=== PATIENT | female | born 1995 | race Caucasian/White ===

== ENCOUNTER 2019-07-03 11:25 | Inpatient (IN) ==
[2019-07-03] MEDS ORDERED: OXYTOCIN/DEXTROSE 5%-WATER 30 UNITS/500 ML BAG IV ONE (18:24)
[2019-07-03] MEDS ORDERED: ONDANSETRON 4 MG TAB.RAPDIS PO PRN (18:24)
[2019-07-03] MEDS ORDERED: DEXTROSE 5%-LACTATED RINGERS 1,000 ML IV PRN (18:24)
[2019-07-03] MEDS ORDERED: RINGER'S SOLUTION,LACTATED 1,000 ML IV ONE (18:24)
[2019-07-03] MEDS: MISOPROSTOL 100 MCG TABLET VG PRN ×2 (18:50→23:27)
[2019-07-03 19:38] LABS: Cocaine Ur Negative (NEGATIVE); Urine Barbiturate Negative (NEGATIVE); Urine Benzodiazepines Negative (NEGATIVE); Urine Opiates Negative (NEGATIVE); Urine PCP Negative (NEGATIVE); Urine THC Negative (NEGATIVE)
--- NOTE | 2019-07-03 19:45 | HP ---
Chief Complaint - Chief Complaint Date of Service: 07/03/19 Time of Service: 19:36 Chief Complaint: elective induction of labor History of Present Illness: 24 yo at 39 6/7 weeks presents to L&D for elective induction of labor. This complicated by anemia, thrombocytopenia. Rh positive Rubella immune GBS negative Medical History (Last Reviewed 07/03/19 @ 19:38 by Kevin Briceno DO) Anxiety Onset Date: ~04/2016 hx of tx with escitalopram. None since 01/2018 Asthma Onset Date: ~2009 Sports induced. No use of inhaler for approx. 2 years Irritable bowel syndrome (IBS) Onset Date: ~2011 Hx of tx with Linzess. None since +UPT Thrombocytopenia Onset Date: 04/02/19 w/ Body piercing Onset Date: Unknown Wears glasses Onset Date: Unknown Complete spontaneous (Resolved) Onset Date: ~03/2018 Irregular menses (Resolved) Onset Date: Unknown Lazy eye Onset Date: Unknown left. Corrected Threatened spontaneous (Resolved) Surgical History: Surgical History (Last Reviewed 07/03/19 @ 19:38 by Kevin Briceno DO) H/O eye surgery Onset Date: ~2001 Lazy eye tx [place] teeth extracted Onset Date: ~01/2018 Teeth 1 & 16 Family History: Family History (Last Reviewed 07/03/19 @ 19:38 by Kevin Briceno DO) Mother Rheumatic fever Father Alive and well Aunt Diabetes Paternal Grandmother Obesity Uterus problem Fibroids Social History: (Last Updated 07/02/19 @ 15:50 by Kevin Briceno DO) Social History: adopted: No penitentiary: No Marital status: household members: spouse number of children: 0 current occupational status: employed current occupation: [employer] current occupational exposures/hazards: Yes current occupational exposures/hazards comment: radiation Highest education level completed: Associate degree: occupat Sexually Active: Yes Service: No Tobacco: Smoking Status: Never smoker Alcohol: alcohol intake: never Substance Use: substance use type: does not use Dietary Habits: caffeine: No caffeine comment: Not since daily servings of milk/calcium: 2-4 Exercise: Physical activity type: walking frequency: 1-2 times per week duration: 15-30 minutes/day Ruth/Roman Catholic: special ruth needs: No agree to transfusion: Yes Personal Safety: do you feel safe at home: Yes victim of physical abuse: No victim of emotional abuse: No victim of sexual abuse: No Review Of Systems (GEN) - Review of Systems Generalized/Overall Review: Present: No Symptoms Reported EENTM: Present: No Symptoms Reported Respiratory: Present: No Symptoms Reported Cardiac: Present: No Symptoms Reported Abdominal: Present: No Symptoms Reported Genitourinary: Present: No Symptoms Reported Musculoskeletal: Present: No Symptoms Reported Neurological: Present: No Symptoms Reported Skin: Present: No Symptoms Reported Endocrine: Present: No Symptoms Reported Allergies/Adverse Reactions: Allergies Allergy/AdvReac Type Severity Reaction Status Date / Time levofloxacin [From Levaquin] Allergy Severe Anaphylaxis Verified 07/02/19 14:56 Home Medications: HOME MEDICATIONS docusate sodium 100 mg capsule 100 mg PO DAILY 11/27/18 [Last Taken 07/02/19 21:00] prenat.vits,suresh,arq-jsma-[id number] 1 tab PO DAILY 11/27/18 [Last Taken 07/02/19 21:00] calcium carbonate 200 mg calcium (500 mg) chewable tablet 200 mg PO DAILY PRN 02/26/19 [Last Taken 07/02/19 21:00] famotidine 10 mg tablet 10 mg PO DAILY 04/23/19 [Last Taken 07/02/19 21:00] Exam - Exam Vital Signs: Vital Signs - Last Taken Temp 36.8 C 07/03/19 18:33 Pulse 89 07/03/19 18:33 Resp 18 07/03/19 18:33 BP 116/71 07/03/19 18:33 Pulse Ox 98 07/03/19 18:33 Constitutional: Present: Alert, Oriented x3, Cooperative ENT Exam: Present: hearing grossly normal Breasts: Present: Exam deferred Respiratory: Present: lungs clear, no respiratory distress Cardiovascular/Chest: Present: regular rate, rhythm, no edema Abdomen: Present: soft, nontender, no rebound tenderness, other - gravid /Rectal: Present: Other - cervix - 1/50/-1 Extremity: Present: no pedal edema, no calf tenderness Skin Exam: Present: normal color, warm/dry, no cyanosis Lymphatic: Present: no adenopathy Neurologic: Present: no motor/sensory deficits, alert Appearance: Present: appropriate appearance, appropriate insight Eye contact: Present: cooperative, good eye contact Thoughts: Present: normal thought pattern, normal mood /affect Assessment/Plan - Assessment/Plan (1) Elective induction of labor planned Assessment: Admit for Cytotec induction of labor. CBC. Epidural and Pitocin PRN. Problem: Acute (2) Thrombocytopenia Problem: Acute Non Stress Test - Status NST: 07/03/19 Monitor Mode: External Acceleration: Present Decelerations: Variable Variability: Moderate 6-25 bpm Activity: reactive Reactive: 15 by 15 - Assessment NST Assessment: other - induction of labor - Plan NST Plan: Admit to L&D
[2019-07-03 20:07] LABS: Hematocrit 35.9 % (37.0-47.0); Hemoglobin 12.3 gm/dL (12.5-16.0); Mean Corpuscular Hemoglobin 34.9 pg (27-31); Mean Corpuscular Hgb Conc 34.3 g/dl (32-36); Mean Platelet Volume 11.6 fl (8-12.5); Neutrophil # 6.3 K/mm3 (1.3-6.0); Neutrophil % 74.5 % (42-75.0); Platelet Count 104 K/mm3 (150-450); Red Blood Count 3.52 M/mm3 (4.2-5.4); Red Cell Distribution Width 12.9 % (11.5-14.0); White Blood Count 8.5 K/mm3 (4.0-10.5)
[2019-07-04] MEDS ORDERED: NALOXONE HCL 1 MG/1 ML SYRG IV PRN (03:35)
[2019-07-04] MEDS ORDERED: BUPIVACAINE HCL/0.9 % NACL/PF 250 ML EP PRN (03:35)
[2019-07-04] MEDS ORDERED: ONDANSETRON HCL/PF 2 MG/ML VIAL IV PRN (03:35)
[2019-07-04] MEDS ORDERED: fentaNYL CITRATE/PF 50 MCG/ML AMPUL IT SCH (03:45)
--- NOTE | 2019-07-04 04:11 | ANES ---
Anesthesia Pre Procedure Eval Vitals/Labs: Last Vital Signs Temp 36.8 C 07/04/19 03:34 Pulse 85 07/04/19 03:34 Resp 22 H 07/04/19 03:34 BP 113/65 07/04/19 03:34 Pulse Ox 98 07/04/19 03:34 HOME MEDICATIONS docusate sodium 100 mg capsule 100 mg PO DAILY 11/27/18 [Last Taken 07/02/19 21:00] prenat.vits,suresh,[id number] 1 tab PO DAILY 11/27/18 [Last Taken 07/02/19 21:00] calcium carbonate 200 mg calcium (500 mg) chewable tablet 200 mg PO DAILY PRN 02/26/19 [Last Taken 07/02/19 21:00] famotidine 10 mg tablet 10 mg PO DAILY 04/23/19 [Last Taken 07/02/19 21:00] Allergies/Adverse Reactions: Allergies Allergy/AdvReac Type Severity Reaction Status Date / Time levofloxacin [From Levaquin] Allergy Severe Anaphylaxis Verified 07/02/19 14:56 - Planned Procedure Planned Procedure: elective induction 39 weeks 6 days Medication List Reviewed:: Yes Allergies Verified: Yes Medical History (Last Reviewed 07/04/19 @ 04:09 by Timothy Gonzalez CRNA) Anxiety Onset Date: ~04/2016 hx of tx with escitalopram. None since 01/2018 Asthma Onset Date: ~2009 Sports induced. No use of inhaler for approx. 2 years Irritable bowel syndrome (IBS) Onset Date: ~2011 Hx of tx with Linzess. None since +UPT Thrombocytopenia Onset Date: 04/02/19 w/ Body piercing Onset Date: Unknown Wears glasses Onset Date: Unknown Complete spontaneous (Resolved) Onset Date: ~03/2018 Irregular menses (Resolved) Onset Date: Unknown Lazy eye Onset Date: Unknown left. Corrected Threatened spontaneous (Resolved) Surgical History (Last Reviewed 07/04/19 @ 04:09 by Timothy Gonzalez CRNA) H/O eye surgery Onset Date: ~2001 Lazy eye tx [place] teeth extracted Onset Date: ~01/2018 Teeth 1 & 16 Family History (Last Reviewed 07/04/19 @ 04:09 by Timothy Gonzalez CRNA) Mother Rheumatic fever Father Alive and well Aunt Diabetes Paternal Grandmother Obesity Uterus problem Fibroids - Family Anesthesia History Family History:: no untoward family reactions to anesthesia, no familial bleeding tendencies, no family history of clotting disorders, no family history of premature - Airway/Neck/Teeth Within Normal Limits:: Yes Teeth Condition: intact Neck Exam: full range of motion Mallampatti Score: 2 Thyromental (T-M) distance: > 6 cm Mandibulo Hyoid distance: > 3 cm - Respiratory Respiratory History: asthma Respiratory Physical: lungs clear Smoking Status: Never smoker Sleep Apnea currently treated: No Sleep Apnea by current assessment: No - Cardiovascular Tolerate Activity: Fair Heart Sounds: S1 & S2, Regular - Gastrointestinal NPO since: 2399 - Anesthesia Assessment and Plan ASA Class: PS, II, E Anesthesia Type Plan: Epidural - CSE for labor analgesia
--- NOTE | 2019-07-04 04:29 | ANES ---
Post Anesthesia Discharge - Transfer of Care Transfer of Care handoff given to nurse: Yes - Discharge from PACU Discharge from PACU when meets criteria: Yes - Comfortable post CSE
--- NOTE | 2019-07-04 04:32 | ANES ---
Anesthesia Procedure Note Procedure Note: ANESTHESIA PROCEDURE NOTE Date of Procedure: [07/04/2019 Time of procedure:0300. Performed by: PAULETTE Alarcon CRNA, MSN [place] Operator: Rey Westfall. Preprocedure diagnosis: Active labor, labor pain. Post procedure diagnosis: Same. Procedure:Epidural for labor analgesia L4,5. Indications: labor pain. Findings: See below. Details of the procedure: The patient was placed on the side of the bed in sitting positionand prepped with DuraPrep then draped in a sterile fashion. Lidocaine 1% was infiltrated to the skin and subcutaneous tissues at the level of the L4,5 interspace. An 18-gauge Touhy needle was used to approach the epidural space with loss of resistance technique. Once loss of resistance was achieved a 27-gauge spinal needle was passed through the epidural needle and CSF was contacted. After CSF returned, 20 mcg of fentanyl was injected in the spinal needle was removed the epidural catheter was then threaded approximately 4 cm in the epidural needle was removed. The catheter was taped in place and after careful aspiration 3 mL of 1.5% lidocaine with 1-200,000 epinephrine was injected without change in maternal heart rate or sensorium. . EBL: Minimal. Fluids: N/A. Specimen: N/A. Post procedure condition: The patient tolerated the procedure well with good r elief. No complications were noted. Thank you for this consultation. Timothy Gonzalez CRNA, PAULETTE, MSN
--- NOTE | 2019-07-04 04:39 | ANES ---
Post Anesthesia Assessment - Vital Signs Vitals: Last Vital Signs Temp 36.8 C 07/04/19 03:34 Pulse 79 07/04/19 04:22 Resp 20 07/04/19 04:22 BP 114/63 07/04/19 04:22 Pulse Ox 98 07/04/19 03:34 Airway Patency: Normal - Mental Status Level Of Consciousness: Awake, Alert, Appropriate - Pain Level Pain Score: 0 - N/V Assessment Nausea/Vomiting Presence: None Dehydration:: No
--- NOTE | 2019-07-04 08:21 | PN ---
Progess Note - Interim Date: 07/04/19 Time: 08:20 Narrative: 07/04/19 08:20 Patient comfortable with epidural Vital signs stable. Pitocin was at 2 mu/min, now off. FHT: 150 baseline, moderate variability with occasional mild variable deceleration and good accelerations contractions q 12 min Cervix: 4/90/-2, AROM-clear Impression: Intrauterine at 40 weeks elective induction of labor progressing well Plan: Continue present plan
--- NOTE | 2019-07-04 16:55 | PN ---
Progess Note - Interim Date: 07/04/19 Time: 16:53 Narrative: 07/04/19 16:53 Patient feeling pressure Vital signs stable. Pitocin at 3 mu/min. FHT: 165 baseline, reassuring contractions q 2-4 min Cervix: Complete/+1 Impression: Intrauterine at 40 weeks elective induction of labor and during second stage. Plan: Anticipate normal spontaneous vaginal delivery soon.
[2019-07-04] MEDS ORDERED: GLYCERIN/WITCH HAZEL LEAF 40 APPL BOX TP PRN (19:03)
[2019-07-04] MEDS ORDERED: OXYTOCIN/DEXTROSE 5%-WATER 30 UNITS/500 ML BAG IV ONE (19:03)
[2019-07-04] MEDS ORDERED: BISACODYL 10 MG SUPP.RECT RC PRN (19:03)
[2019-07-04] MEDS ORDERED: ACETAMINOPHEN 325 MG TABLET PO PRN (19:03)
[2019-07-04] MEDS ORDERED: BENZOCAINE/MENTHOL 81 SPRAY CAN TP PRN (19:03)
[2019-07-04] MEDS ORDERED: SENNOSIDES 8.6 MG TABLET PO PRN (19:03)
[2019-07-04] MEDS ORDERED: HYDROCORTISONE 30 APPL TUBE TP PRN (19:03)
[2019-07-04] MEDS ORDERED: CALCIUM CARBONATE 500 MG TAB.CHEW PO PRN (19:04)
--- NOTE | 2019-07-04 19:13 | OR ---
Operative Report - Dictated Report Narrative: Spontaneous vaginal delivery of viable female at 1841 on 07/04/2019 with Apgars 9 and 10, weighing 3713 g in RUKHSANA position with right hand at chin. Cord clamping delayed approximately 1 minute Placenta delivered complete, intact, with three vessel cord Estimated blood loss: 100 mL Anesthesia: Epidural Lacerations: First-degree vaginal laceration repaired with 3-0 Vicryl Rapide History for MU History for Definition: * The number of deliveries resulting in a live the patient experienced prior to current hospitalization * The previous delivery of live twins or any live multiple gestation is considered one live event. *If primagravida or nulliparous is documented select zero for the number of previous live births. Live Events: Live Events: 0
[2019-07-04] MEDS: IBUPROFEN 800 MG TABLET PO PRN (21:14)
[2019-07-04] MEDS: DOCUSATE SODIUM 100 MG CAPSULE PO SCH (23:26)
[2019-07-05] MEDS: oxyCODONE HCL/ACETAMINOPHEN 1 TAB TABLET PO PRN ×3 (01:35→22:50)
[2019-07-05] MEDS: DOCUSATE SODIUM 100 MG CAPSULE PO SCH ×2 (08:23→21:32)
[2019-07-05] MEDS: IBUPROFEN 800 MG TABLET PO PRN ×2 (08:23→16:59)
[2019-07-05] MEDS ORDERED: DOCUSATE SODIUM 100 MG CAPSULE PO SCH (09:00)
--- NOTE | 2019-07-05 14:52 | PN ---
Subjective - Date and Time Seen Date: 07/05/19 Time: 14:52 Objective - Vitals Vitals: Last Vital Signs Temp 36.1 C 07/05/19 12:37 Pulse 71 07/05/19 12:37 Resp 18 07/05/19 12:37 BP 119/78 07/05/19 12:37 Pulse Ox 100 07/05/19 12:37 Patient denies complaints. Lochia wnl abdomen - soft, nontender Uterus -firm, at umbilicus - 1 no calf tenderness Impression: day #1 - s/p spontaneous vaginal delivery. Plan: Continue routine care Cauti Physician Documentation - Urinary Catheter Management Urethral (Tucker) Date of Insertion: 07/04/19 Time of Insertion: 05:00 Assessment/Plan - Problems/Diagnosis (1) Elective induction of labor planned Problem: Acute (2) Thrombocytopenia Problem: Acute
[2019-07-05] MEDS: PRENATAL VITS96/IRON FUM/FOLIC 1 TAB TABLET PO SCH (19:13)
[2019-07-06] MEDS: IBUPROFEN 800 MG TABLET PO PRN (01:58)
[2019-07-06 06:57] VITALS: BP 119/77
[2019-07-06] MEDS: DOCUSATE SODIUM 100 MG CAPSULE PO SCH (09:12)
[2019-07-06] MEDS: PRENATAL VITS96/IRON FUM/FOLIC 1 TAB TABLET PO SCH (09:12)
--- NOTE | 2019-07-06 11:18 | PN ---
Subjective - Date and Time Seen Date: 07/06/19 Time: 11:17 Objective - Vitals Vitals: Last Vital Signs Temp 36.2 C 07/06/19 06:56 Pulse 67 07/06/19 06:56 Resp 18 07/06/19 06:56 BP 119/77 07/06/19 06:56 Pulse Ox 100 07/06/19 06:56 Patient denies complaints. Breast-feeding well Lochia wnl abdomen - soft, nontender Uterus -firm, at umbilicus - 2 no calf tenderness Impression: day #2 - s/p spontaneous vaginal delivery. Thrombocytopenia. Plan: Routine discharge instructions. Recheck platelets at visit. Cauti Physician Documentation - Urinary Catheter Management Urethral (Tucker) Date of Insertion: 07/04/19 Time of Insertion: 05:00 Assessment/Plan - Problems/Diagnosis (1) Elective induction of labor planned Problem: Acute (2) Thrombocytopenia Problem: Acute
== END 2019-07-06 12:30 | disposition home or self-care (01) | DRG 806 ==
LOC: OB 17:56
PROVIDERS: ADMIT Obstetrics & Gynecology; ATTEND Obstetrics & Gynecology
CPT/HCPCS: 36415; 59025; 80307; 85025; 86850